=== PATIENT | female | born 1955 | race Caucasian/White ===

== ENCOUNTER → 2020-12-10 | Outpatient (CLI) | payer OTHER ==
--- NOTE | 2020-12-21 17:26 | RAD ---
PROCEDURE: MG BILAT SCREEN+DORA HISTORY: The patient is 65 years old and is seen for Reason: SCREENING / Spl. Instructions: / Histor y: . COMPARISON: None available. If her prior examinations become available, an addendum can be issued. TECHNIQUE: CC and MLO views of both breasts were obtained. Images were reviewed with computer-aided detection. DENSITY: The breast parenchyma is heterogeneously dense. This may lower the sensitivity of mammograph y. FINDINGS: Negative right mammogram. Asymmetry in the medial superior left breast at the approximate 10:00 position 9 cm from the nipple best seen on tomographic image 61 of 78 in the CC projection nee ds additional imaging. Benign biopsy marker in the far lateral left breast at the same depth as this asymmetry is incidentally noted. IMPRESSION: Incomplete. Needs additional imaging. Recommend a full field lateral view preferably with 3-D technique, CC spot compression view and targ eted left breast ultrasound. BI-RADS category 0 Incomplete: Needs additional imaging evaluation Patient entered into a reminder system for annual screening mammogram. Electronically signed by: Reuben Wallace MD (12/21/2020 5:24 PM) [id number]
== END ==
LOC: MAMMO 09:05
PROVIDERS: ATTEND Internal Medicine
DX: Z12.31 Encounter for screening mammogram for malignant neoplasm of breast (principal)
CPT/HCPCS: 77063; 77067

== ENCOUNTER → 2021-01-27 | Outpatient (CLI) | payer OTHER ==
--- NOTE | 2021-01-27 12:41 | RAD ---
CLINICAL INDICATION: PRICILA MARQUES, who is 65 years of age, presents for further evaluation of a f inding noted on her most recent screening mammographic examination. On that examination an asymmetry was reported within the left breast COMPARISON: Prior mammographic imaging 12/10/2020 TECHNIQUE: Diagnostic views of the left breast were obtained, utilizing digital technique. BREAST COMPOSITION: The breast tissue is heterogenously dense, which could obscure detection of small masses. MAMMOGRAM FINDINGS: Spot compression images of the left breast demonstrate the asymmetry in the medial left breast. Therefore ultrasound was performed. ULTRASOUND FINDINGS: Targeted ultrasound of the mammographic area of concern was performed. 12:00 position, 4 cm from the nipple: A 0.5 x 0.7 x 0.4 cm essentially anechoic cyst is seen. 2:00 position, 9 cm from the nipple: 4 x 4 x 4 mm hypoechoic mass with irregular margins is seen. 10:00 position, 5 cm from the nipple: A 7 x 1 x 5 mm essentially anechoic lesion is seen within inter nal septation likely complicated cyst. 11:00 position, 10 cm from the nipple: A 0.4 x 0.3 x 0.3 cm hypoechoic structure with circumscribed m argins, enhanced through transmission and mild internal echogenic material possibly debris. IMPRESSION: 1. Left breast mass with suspicious imaging features for which tissue biopsy is recommended and can b e performed with ultrasound imaging guidance. RECOMMENDATION: 1. Biopsy recommended. The results were discussed with the patient with the recommendation of biopsy of the hypoechoic mass at the 2:00 position, 9 cm from the nipple. 2. Complicated cysts are suspected at the 11:00 position, 9 cm from the nipple and 10:00 position 5 cm from the nipple. Ultrasound is recommended in 6 months BIRADS 4: SUSPICIOUS Electronically signed by: Osman Barcenas MD (01/27/2021 12:38 PM) [id number]
== END ==
LOC: MAMMO 09:22
PROVIDERS: ATTEND Internal Medicine
DX: N60.02 Solitary cyst of left breast (principal); N63.21 Unspecified lump in the left breast, upper outer quadrant
CPT/HCPCS: 76641; 77065; G0279; 77061

== ENCOUNTER → 2021-08-02 | Outpatient (CLI) | payer OTHER ==
--- NOTE | 2021-08-04 11:13 | RAD ---
INDICATION: 66 year-old female presents for ultrasound evaluation of an abnormality in the left breas t. TECHNIQUE: Targeted high resolution sonography of the region of clinical concern was performed. COMPARISON: 01/27/2021 12/10/2020 FINDINGS: Targeted ultrasound of the mammographic area of concern was performed. 2:00 position, 9 cm from the nipple: 4 x 6 x 4 mm hypoechoic mass with irregular margins is seen. 10:00 position, 5 cm from the nipple: A 6 x 6 x 3 mm essentially anechoic lesion is seen within inter nal septation likely complicated cyst. 11:00 position, 10 cm from the nipple: A 4 x 2 x 3 mm hypoechoic structure with circumscribed margins , enhanced through transmission and mild internal echogenic material possibly debris. IMPRESSION: Left breast mass at the 10:00 position with suspicious imaging findings. RECOMMENDATION: 1. Biopsy recommended. Suspicious findings at the 2:00 position 9 cm from the nipple, for which ultr asound-guided biopsy is recommended. 2. Complicated cysts at the 11:00 position and 10:00 position are seen, for which continued sonograp hic evaluation is recommended, in 6 months. BI-RADS 4: Suspicious Electronically signed by: Osman Barcenas MD (08/04/2021 11:10 AM) [id number]
== END ==
LOC: US 12:50
PROVIDERS: ATTEND Internal Medicine
DX: N63.22 Unspecified lump in the left breast, upper inner quadrant (principal)
CPT/HCPCS: 76641

== ENCOUNTER → 2022-02-09 | Outpatient (CLI) | payer OTHER ==
--- NOTE | 2022-02-09 13:53 | RAD ---
DIAGNOSTIC LEFT BREAST ULTRASOUND INDICATION: Follow-up left breast after biopsy. COMPARISON: Ultrasound 08/02/2021. Mammogram 12/10/2020, 01/27/2021. FINDINGS: In the left breast 2:00 radial, 9 cm from the nipple there is redemonstration of the previously biops ied hypoechoic mass with irregular margins measuring 0.7 x 0.5 x 0.2 cm with well-defined back wall, and parallel orientation. No abnormal color Doppler flow. Prior to biopsy this measured approximately 0.6 x 0.4 x 0.4 cm. Biopsy demonstrated usual ductal hyperplasia and focal atypical ductal hyperplas ia. Redemonstrated below the 10:00 position 5 cm from the nipple complicated cyst measuring 0.7 x 0.3 x 0 .5 cm and 11:00 position complicated cystic lesion measuring 0.5 x 0.5 x 0.2 cm. These are similar ch aracteristics to prior exam. No current mammogram is available for comparison. IMPRESSION: 1. Relative stability of previously biopsied 2:00 left breast mass demonstrating usual ductal hyperp lasia and focal atypical ductal hyperplasia. Similar appearance to complicated cysts in the 10:00 and 11:00 radials. Unfortunately patient was not scheduled for mammogram prior to this appointment and n o orthotics prosthetics technician was available. ASSESSMENT: BI-RADS 0: Incomplete -- Need Additional Imaging Evaluation and/or Prior Mammograms for C omparison. RECOMMENDATION: Call back for bilateral diagnostic mammography. The facility will notify the patient of the results via mail. Patient information will be entered int o the mammography reminder system with a target recall date for the next mammogram. A reminder letter will be generated by the facility. Electronically signed by: New Su MD (02/09/2022 1:50 PM) [id number]
== END ==
LOC: US 12:41
PROVIDERS: ATTEND Nurse Practitioner Family
DX: N63.22 Unspecified lump in the left breast, upper inner quadrant (principal); N60.02 Solitary cyst of left breast
CPT/HCPCS: 76641